=== PATIENT | male | born 1975 | race Caucasian/White ===

== ENCOUNTER → 2022-08-15 | Day surgery (SDC) | payer MEDICAID ==
[~2022-08-15] VITALS: Ht 167.6 cm; Wt 72.6 kg
[~2022-08-15] MED LIST: ATOR10TA69 PO; BUPIVACAINE HCL/PF 0.5% (5MG/ML) 10ML ONE; CETI10TA6 PO; KETAMINE HCL 50 MG/ML 10ML ONE; LACTATED RINGERS 1,000 ML IV SCH; NALT50TA5 PO
== END | disposition home or self-care (01) ==
LOC: OR 05:50
PROVIDERS: ATTEND Surgery
DX: R22.1 Localized swelling, mass and lump, neck (principal); E78.00 Pure hypercholesterolemia, unspecified; Z87.891 Personal history of nicotine dependence; Z79.899 Other long term (current) drug therapy; Z98.890 Other specified postprocedural states; Z20.822 Contact with and (suspected) exposure to COVID-19
CPT/HCPCS: 21552; 87426; 88304; C9803; J3490